=== PATIENT | male | born 1970 | race Caucasian/White ===

== ENCOUNTER 2024-06-21 20:24 | Emergency (ER) | payer OTHER ==
[2024-06-21] MEDS ORDERED: ONDANSETRON 4 MG/2 ML VIAL ONE (20:48)
[2024-06-21 20:49] LABS: Absolute Basophils 0.1 K/uL (0-0.5); Absolute Eosinophils 0.3 K/uL (0-0.5); Absolute Lymphocytes (CBC) 3.5 K/uL (0.7-4.9); Absolute Monocytes 0.5 K/uL (0.1-1.3); Absolute Neutrophil 4.2 K/uL (1.8-8.0); Basophils % 1.4 % (0-1.3); Eosinophils % 3.8 % (0-4.4); Hematocrit 35.5 % (39.6-49.0); Hemoglobin 11.7 g/dL (13.6-17.9); Lymphocytes % 40.2 % (15.3-44.8); MCH 28.9 pg (27.0-35.0); MCHC 32.9 g/dL (32.0-36.0); MCV 87.8 fL (80-100); MPV 7.1 fL (7.6-11.3); Monocytes % 6.2 % (3.3-12.3); Neutrophils % 48.4 % (41.7-73.7); Platelets 369 thou/uL (152-406); RBC Red Blood Cell Count 4.05 M/uL (4.33-5.43)
[2024-06-21 21:05] LABS: Anion Gap 11.2 mEq/L (5.0-15.0); Potassium 3.2 mEq/L (3.5-5.1); Troponin High Sensitivity 5.2 pg/mL (<58.9)
[2024-06-21] MEDS ORDERED: POTASSIUM CL SA 10 MEQ TAB PO ONE (21:09)
--- NOTE | 2024-06-21 21:40 | RAD REPORT ---
EXAM DESCRIPTION: RAD - Chest Single View - 06/21/2024 9:30 pm CLINICAL HISTORY: syncope Chest pain. COMPARISON: <Comparisons> FINDINGS: Portable technique limits examination quality. The lungs are grossly clear. The heart is normal in size. No displaced fractures. IMPRESSION: No acute intrathoracic process suspected.
--- NOTE | 2024-06-21 21:48 | ER ---
Nurse's Notes [facility] Name: Juan Miguel Agrawal Age: 54 yrs Sex: Male : 1970 Arrival Date: 06/21/2024 Time: 20:24 Bed 4 Private MD: Diagnosis: Syncope Near;Hypokalemia Presentation: 06/21 20:37 Chief complaint: EMS states: pt was at a local establishment watching [employer] game and bm8 passed out for up to 30 secs, when pt came to he vomited. pt had low bp initially and now is sitting around 100 systolic. Coronavirus screen: At this time, the client does not indicate any symptoms associated with coronavirus-19. Ebola Screen: Patient negative for fever greater than or equal to 101.5 degrees Fahrenheit, and additional compatible Ebola Virus Disease symptoms Patient denies exposure to infectious person. Patient denies travel to an Ebola-affected area in the 21 days before illness onset. No symptoms or risks identified at this time. Initial Sepsis Screen: Does the patient meet any 2 criteria? No. Patient's initial sepsis screen is negative. Does the patient have a suspected source of infection? No. Patient's initial sepsis screen is negative. Risk Assessment: Do you want to hurt yourself or someone else? Patient reports no desire to harm self or others. Onset of symptoms is unknown. Care prior to arrival: Medication(s) given: Normal saline infusion, 1000 mL, started 2nd liter zofran odt IV initiated. 18 GA, in the left antecubital area, Oxygen administered. via nasal cannula. 20:37 Method Of Arrival: EMS: [facility] bm8 20:37 Acuity: DAO 3 bm8 Triage Assessment: 20:42 General: Appears in no apparent distress. comfortable, Behavior is calm, cooperative, bm8 appropriate for age. Pain: Denies pain. EENT: No deficits noted. No signs and/or symptoms were reported regarding the EENT system. Neuro: No deficits noted. 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 Full function Speech is normal, Facial symmetry appears normal, Pupils are PERRLA, Pupil Size: 3 mm Intact Reports blurred vision prior to passing out earlier, symptoms resolved HOT FRAME TENDER. Cardiovascular: Denies chest pain, lightheadedness, shortness of breath, Heart tones S1 S2 present Capillary refill < 3 seconds Patient's skin is warm and dry. Pulses are all present. Rhythm is sinus bradycardia. Respiratory: No deficits noted. Airway is patent Respiratory effort is even, unlabored, Respiratory pattern is regular, symmetrical, Breath sounds are clear bilaterally. GI: Abdomen is flat, non-distended, Bowel sounds present X 4 quads. Reports nausea, vomiting, N/V HOT FRAME TENDER, no symptoms at this time. : No signs and/or symptoms were reported regarding the genitourinary system. Derm: No signs and/or symptoms reported regarding the dermatologic system. Musculoskeletal: No signs and/or symptoms reported regarding the musculoskeletal system. Historical: - Allergies: 20:41 No Known Allergies; bm8 - Home Meds: 20:41 Unable to obtain [Active]; bm8 - PMHx: 20:42 mitral valve prolaspe; Hypertensive disorder; bm8 - PSHx: 20:41 None; bm8 - Immunization history:: Adult Immunizations up to date. - Infectious Disease History:: Denies. - Social history:: Smoking status: Patient reports use of chewing tobacco. Patient uses alcohol, Patient/guardian denies using street drugs. Screenin:45 [facility] ED Fall Risk Assessment (Adult) History of falling in the last 3 months, bm8 including since admission No falls in past 3 months (0 pts) Confusion or Disorientation No (0 pts) Intoxicated or Sedated Yes (3 pts) Impaired Gait No (0 pts) Mobility Assist Device Used No (0 pt) Altered Elimination No (0 pt) Score/Fall Risk Level 3 or more points = High Risk Oriented to surroundings, Maintained a safe environment, Educated pt \T\ family on fall prevention, incl call for assistance when getting out of bed, Assessed \T\ reinforced patient's understanding of fall precautions, Hourly rounding (assess needs \T\ fall precautionary measures) done, Used ambulatory aids as needed (educated on \T\ assisted with), Used gait belt as appropriate Implemented a Fall Risk Plan of Care, Utilized family, sitter, or virtual bath mixer as indicated. Abuse screen: Denies threats or abuse. Nutritional screening: No deficits noted. Tuberculosis screening: No symptoms or risk factors identified. Assessment: 20:45 Reassessment: see triage note. bm8 22:00 Reassessment: Patient appears in no apparent distress at this time. Patient and/or bm8 family updated on plan of care and expected duration. Pain level reassessed. Patient is alert, oriented x 3, equal unlabored respirations, skin warm/dry/pink. Patient denies pain at this time. Patient states feeling better. Patient states symptoms have improved. Vital Signs: 20:37 BP 96 / 61; Pulse 59; Resp 20; Temp 98.1; Pulse Ox 98% ; Weight 76.66 kg; Height 5 ft. bm8 8 in. ; Pain 0/10; 21:42 BP 106 / 77; ec2 21:59 BP 106 / 57; Pulse 57; Resp 17; Temp 98.1; Pulse Ox 98% ; Pain 0/10; bm8 20:37 Body Mass Index 25.70 (76.66 kg, 172.72 cm) bm8 20:37 Pain Scale: Adult bm8 21:59 Pain Scale: Adult bm8 Joyce Coma Score: 20:45 Eye Response: spontaneous(4). Motor Response: obeys commands(6). Verbal Response: bm8 oriented(5). Total: 15. ED Course: 20:29 Patient arrived in ED. rv1 20:30 Satnam Rowe MD is Attending Physician. ec2 20:37 Danny Rosas, RN is Primary Nurse. bm8 20:41 Triage completed. bm8 20:42 Arm band placed on right wrist. bm8 20:45 Patient has correct armband on for positive identification. Bed in low position. Call bm8 light in reach. Side rails up X2. Adult w/ patient. Client placed on continuous cardiac and pulse oximetry monitoring. NIBP monitoring applied. supervisor research shop on. Pulse ox on. NIBP on. Door closed. Noise minimized. Warm blanket given. Verbal reassurance given. Head of bed elevated. 20:45 No provider procedures requiring assistance completed. Initial lab(s) drawn, by , george sent to lab. EKG done, by ED staff, reviewed by Satnam Rowe MD. Maintain EMS IV. Dressing intact. Good blood return noted. Site clean \T\ dry. Gauge \T\ site: 18 g LAC. 21:32 XRAY Chest (1 view) In Process Unspecified. EDMS 22:00 Provided Education on: POST ER CARE. bm8 22:00 IV discontinued, intact, bleeding controlled, No redness/swelling at site. Pressure bm8 dressing applied. Administered Medications: 20:45 Drug: NS 0.9% IV 1000 ml IV at 1 bolus Per protocol; 1000 mL bolus Route: IV; Rate: 1 bm8 bolus; Site: left antecubital; 22:01 Follow up: Response: No adverse reaction; IV Status: Completed infusion; IV Intake: bm8 1000ml 20:45 Drug: Ondansetron IVP 4 mg IVP once; over 2 minutes Route: IVP; Site: left antecubital; bm8 22:01 Follow up: Response: No adverse reaction bm8 21:10 Drug: Potassium Chloride PO 40 mEq PO once Route: PO; kd4 21:23 Follow up: Response: No adverse reaction bm8 22:01 Follow up: Response: No adverse reaction bm8 Medication: 20:45 VIS not applicable for this client. bm8 Intake: 22:01 IV: 1000ml; Total: 1000ml. bm8 Outcome: 21:48 Discharge ordered by . ec2 22:00 Discharged to home ambulatory, with family, bm8 22:00 Condition: stable 22:00 Discharge instructions given to patient, Instructed on discharge instructions, follow up and referral plans. Demonstrated understanding of instructions, follow-up care, 22:01 Patient left the ED. bm8 Signatures: Dispatcher [employer] Poppy Ryan rv1 Satnam Rowe MD MD ec2 Danny Rosas, RN RN bm8 Kizzy Mckeon RN RN kd4 Corrections: (The following items were deleted from the chart) 20:42 20:41 PMHx: Unable to Obtain; bm8 bm8
--- NOTE | 2024-06-21 21:48 | EDPHYS ---
Physician Documentation [facility] Name: Juan Miguel Agrawal Age: 54 yrs Sex: Male : 1970 Arrival Date: 06/21/2024 Time: 20:24 Bed 4 Private MD: ED Physician Satnam Rowe HPI: 06/21 20:50 This 54 yrs old Male presents to ER via EMS with complaints of Syncope. ec2 20:50 Patient arrives today for evaluation of a syncopal episode. Patient reports that he ec2 felt lightheaded, attempted to get up and subsequently started to pass out. Patient was caught by a friend, did not hit the ground. Reports no head strike, no head pain, no neck pain. Patient reports no chest pain or shortness of breath, denies abdominal pain.. Historical: - Allergies: 20:41 No Known Allergies; bm8 - Home Meds: 20:41 Unable to obtain [Active]; bm8 - PMHx: 20:42 mitral valve prolaspe; Hypertensive disorder; bm8 - PSHx: 20:41 None; bm8 - Immunization history:: Adult Immunizations up to date. - Infectious Disease History:: Denies. - Social history:: Smoking status: Patient reports use of chewing tobacco. Patient uses alcohol, Patient/guardian denies using street drugs. ROS: 20:50 Constitutional: as per hpi ec2 Exam: 20:50 Constitutional: GEN: NAD Head: atraumatic Eyes: EOMI Ears: External ears are ec2 normal. CV: regular rate LUNGS: no respiratory distress ABD: non-distended SKIN: no evidence of rashes MSK: no evidence of trauma NEURO: moves all extremities equally Vital Signs: 20:37 BP 96 / 61; Pulse 59; Resp 20; Temp 98.1; Pulse Ox 98% ; Weight 76.66 kg; Height 5 ft. bm8 8 in. ; Pain 0/10; 21:42 BP 106 / 77; ec2 21:59 BP 106 / 57; Pulse 57; Resp 17; Temp 98.1; Pulse Ox 98% ; Pain 0/10; bm8 20:37 Body Mass Index 25.70 (76.66 kg, 172.72 cm) bm8 20:37 Pain Scale: Adult bm8 21:59 Pain Scale: Adult bm8 Joyce Coma Score: 20:45 Eye Response: spontaneous(4). Motor Response: obeys commands(6). Verbal Response: bm8 oriented(5). Total: 15. MDM: 20:31 Patient medically screened. ec2 20:50 Data reviewed: vital signs. ED course: Patient arrives today for evaluation of a ec2 syncopal episode. Examination remarkable for well-appearing nontoxic vigorous otherwise in no acute distress with a reassuring examination. EKG obtained, independently reviewed and interpreted by me, shows normal sinus rhythm, rate of 57, no acute ST segment ovation's, and was nonconcerning, motion artifact noted. Will obtain lab work, chest x-ray. Differential includes arrhythmia, electrolyte disturbances, anemia, dehydration.. 21:06 ED course: Metabolic profile shows slight hypokalemia with potassium of 3.2. CBC shows ec2 minimal anemia, troponin within normal ranges. Will supplement potassium. . 21:32 ED course: X-ray independently reviewed and interpreted by me, shows no evidence of ec2 acute intrathoracic process.. 21:47 ED course: On reassessment patient is well-appearing no acute distress. Patient without ec2 any recurrence of symptoms. Will discharge home. Return precautions given. Suspect vasovagal syncope. Patient also had minimal p.o. intake and had multiple alcoholic beverages which I suspect contributed.. 08 20:31 Order name: Basic Metabolic Panel; Complete Time: 21:05 ec2 06/21 20:31 Order name: CBC with Diff; Complete Time: 21:05 ec2 06/21 20:31 Order name: Troponin HS; Complete Time: 21:05 ec2 06/21 20:31 Order name: XRAY Chest (1 view); Complete Time: 21:42 ec2 06/21 20:31 Order name: Cardiac monitoring; Complete Time: 20:47 ec2 06/21 20:31 Order name: EKG - Nurse/Tech; Complete Time: 20:47 ec2 06/21 20:31 Order name: IV Saline Lock; Complete Time: 20:47 ec2 06/21 20:31 Order name: Labs collected and sent; Complete Time: 20:47 ec2 06/21 20:31 Order name: O2 Per Protocol; Complete Time: 20:47 ec2 06/21 20:31 Order name: O2 Sat Monitoring; Complete Time: 20:47 ec2 Administered Medications: 20:45 Drug: NS 0.9% IV 1000 ml IV at 1 bolus Per protocol; 1000 mL bolus Route: IV; Rate: 1 bm8 bolus; Site: left antecubital; 22:01 Follow up: Response: No adverse reaction; IV Status: Completed infusion; IV Intake: bm8 1000ml 20:45 Drug: Ondansetron IVP 4 mg IVP once; over 2 minutes Route: IVP; Site: left antecubital; bm8 22:01 Follow up: Response: No adverse reaction bm8 21:10 Drug: Potassium Chloride PO 40 mEq PO once Route: PO; kd4 21:23 Follow up: Response: No adverse reaction bm8 22:01 Follow up: Response: No adverse reaction bm8 Disposition Summary: 06/21/24 21:48 Discharge Ordered Notes: Location: Home ec2 Condition: Stable ec2 Diagnosis - Syncope Near ec2 - Hypokalemia ec2 Followup: ec2 - With: Private Physician - When: - Reason: Re-evaluation by your physician Discharge Instructions: - Discharge Summary Sheet ec2 - Potassium Content of Foods ec2 - Near-Syncope ec2 Forms: - Medication Reconciliation Form ec2 - Antibiotic Education ec2 - Prescription Opioid Use ec2 - Patient Portal Instructions ec2 - Leadership Thank You Letter ec2 Signatures: Dispatcher [employer] Satnam Nicholson MD MD ec2 Danny Rosas, RN RN bm8 Kizzy Mckeon, ALICIA RN kd4 Corrections: (The following items were deleted from the chart) 20:31 20:31 BASIC METABOLIC PANEL+C.LAB.BRZ ordered. EDMS EDMS 20:31 20:31 CBC+H.LAB.BRZ ordered. EDMS EDMS 20:31 20:31 Troponin High Sensitivity+C.LAB.BRZ ordered. EDMS EDMS 20:31 20:31 Chest Single View+RAD.RAD.BRZ ordered. EDMS EDMS 20:42 20:41 PMHx: Unable to Obtain; bm8 bm8 21:48 21:47 ED course: On reassessment patient is well-appearing no acute distress. Patient ec2 without any recurrence of symptoms. Will discharge home. Return precautions given.. ec2
[2024-06-21 22:11] VITALS: TEMP 98.1; O2SAT 98
[2024-06-21 22:13] VITALS: BP 106/57
--- NOTE | 2024-06-24 13:52 | EKG ---
Test Date: 2024-06-21 Test Time: 20:35:09 Import/Export Agent: MEASUREMENT RESULTS: Intervals: Rate: 57 CO: 186 QRSD: 98 QT: 458 QTc: 445 [place]: P: 45 CO: 186 QRS: 36 T: -17 INTERPRETIVE STATEMENTS: Sinus bradycardia Inferior infarct, age undetermined Abnormal ECG No previous ECG available for comparison Electronically Signed On 06-24-24 13:46:52 CDT by Wilner Silva
== END 2024-06-21 22:01 | disposition home or self-care (01) ==
LOC: ER 20:24
DX: R55 Syncope and collapse (principal); E87.6 Hypokalemia; I10 Essential (primary) hypertension; F17.220 Nicotine dependence, chewing tobacco, uncomplicated
CPT/HCPCS: 96361; 85025; 80048; 36415; 84484; 71045; 96374; 99285; J2405; 93005